=== PATIENT | male | born 1980 | race Caucasian/White ===

== ENCOUNTER 2017-12-10 15:05 | Emergency (ER) | payer SELFPAY | END 2017-12-10 15:17 | disposition left against medical advice (07) | LOC: ER 15:10 | DX: Z04.1 Encounter for examination and observation following transport accident (principal); Z53.21 Procedure and treatment not carried out due to patient leaving prior to being seen by health care provider ==

== ENCOUNTER 2017-12-10 16:27 | Emergency (ER) | payer SELFPAY ==
[~2017-12-10] VITALS: Ht 170.2 cm; Wt 87.5 kg
[2017-12-10 16:36] VITALS: BP 141/86
== END 2017-12-10 21:06 | disposition home or self-care (01) ==
LOC: ER 16:31
DX: R07.89 Other chest pain (principal); M25.512 Pain in left shoulder; J45.909 Unspecified asthma, uncomplicated; F17.210 Nicotine dependence, cigarettes, uncomplicated; Z88.8 Allergy status to other drugs, medicaments and biological substances; V43.52XA Car driver injured in collision with other type car in traffic accident, initial encounter; Y93.89 Activity, other specified; Y92.89 Other specified places as the place of occurrence of the external cause; Y99.8 Other external cause status
CPT/HCPCS: 71046